=== PATIENT | female | born 1980 | race Two or more races ===

== ENCOUNTER → 2020-05-11 | Outpatient (CLI) | payer BC ==
[2020-05-11 13:35] LABS: BLOOD UREA NITROGEN 10 mg/dL (7-20)
== END ==
LOC: OD 11:27
PROVIDERS: ATTEND Obstetrics & Gynecology Gynecologic Oncology
DX: Z01.812 Encounter for preprocedural laboratory examination (principal)
CPT/HCPCS: 36415; 82565; 84520